=== PATIENT | male | born 1950 | race Caucasian/White ===

== ENCOUNTER 2018-08-14 16:26 | Inpatient (IN) | payer MEDICARE ==
[~2018-08-14] VITALS: Ht 167.6 cm; Wt 77.6 kg
[2018-08-14 17:20] LABS: *BILIRUBIN,URIN NEGATIVE (NEGATIVE); *BLOOD, URINE NEGATIVE (NEGATIVE); *COLOR,URINE YELLOW (YELLOW); *KETONES,URINE NEGATIVE (NEGATIVE); *PROTEIN,URINE 1+ (NEGATIVE); LEUKOCYTE ESTERASE ,URINE NEGATIVE (NEGATIVE); NITRITE, URINE NEGATIVE (NEGATIVE); PH,URINE 6.5 (5.0-8.0); UGLUCOSE NEGATIVE (NEGATIVE)
[2018-08-14 17:20] LABS: BASOPHILS # (AUTO) 0.1 K/uL (0.0-8.0); BASOPHILS % (AUTO) 1.4 % (0.0-2.0); EOSINOPHILS # (AUTO) 0.1 K/uL (0.0-0.7); EOSINOPHILS % (AUTO) 1.3 % (0.0-7.0); HEMATOCRIT 42.6 % (36.7-47.1); HEMOGLOBIN 14.9 g/dL (12.5-16.3); LYMPHOCYTES # (AUTO) 1.3 K/uL (20.0-40.0); LYMPHOCYTES % (AUTO) 23.3 % (20.5-51.5); MEAN CORPUSCULAR HEMOGLOBIN 30.4 uug (23.8-33.4); MEAN CORPUSCULAR HGB CONC 35 g/dL (32.5-36.3); MEAN CORPUSCULAR VOLUME 86.8 fL (73.0-96.2); MONOCYTES # (AUTO) 0.6 K/uL (2.0-10.0); MONOCYTES % (AUTO) 10.4 % (0.0-11.0); NEUTROPHILS # (AUTO) 3.6 K/uL (1.8-8.9); NEUTROPHILS % (AUTO) 63.6 % (38.5-71.5); PLATELET COUNT (AUTO) 208 K/uL (152-348); RED BLOOD CELL COUNT(AUTO) 4.91 MIL/uL (4.06-5.63); WHITE BLOOD COUNT (AUTO) 5.7 K/uL (3.6-10.2)
[2018-08-14 17:27] LABS: CARBON DIOXIDE 26 mmol/L (21-32); CHLORIDE 103 mmol/L (98-107); CREATININE 1.2 mg/dL (0.6-1.3); GLUCOSE 102 mg/dL (74-106); POTASSIUM 4.2 mmol/L (3.5-5.1); UREA NITROGEN, BLOOD 15 mg/dL (7-18)
[2018-08-14 17:33] LABS: ALANINE AMINOTRANSFERASE 30 U/L (16-63); ALKALINE PHOSPHATASE 73 U/L (50-136); ASPARTATE AMINOTRANSFERASE 20 U/L (15-37); BILIRUBIN,DIRECT 0.2 mg/dL (0.0-0.2); BILIRUBIN,TOTAL 0.4 mg/dL (0.2-1.0); TOTAL PROTEIN, SERUM 6.8 g/dL (6.4-8.2)
[2018-08-14 17:34] LABS: ACETAMINOPHEN < 2.0 ug/mL (10-30)
[2018-08-14 17:40] LABS: *AMPHETAMINE, URINE NEGATIVE (NEGATIVE); *BARBITURATE, URINE NEGATIVE (NEGATIVE); *CANNABINOID, URINE NEGATIVE (NEGATIVE); *COCCAINE, URINE NEGATIVE (NEGATIVE); *OPIATE, URINE NEGATIVE (NEGATIVE); *PHENCYCLIDINE SCREEN,URINE NEGATIVE (NEGATIVE)
[2018-08-14 17:43] LABS: ETHANOL < 3 MG/DL (0-0)
[2018-08-14 17:45] LABS: *CLARITY,URINE SLIGHTLY HAZY (CLEAR)
[2018-08-14 17:54] LABS: MUCUS,URINE MANY /LPF (0-FEW); RBC,URINE 0-3 /HPF (0-3); WBC,URINE 0-3 /HPF (0-3)
[2018-08-14 17:56] LABS: THYROID STIMULATING HORMONE 1.428 mIU/mL (0.358-3.740)
[2018-08-14] MEDS ORDERED: MAG HYDROX/AL HYDROX/SIMETH 30 ML LIQUID UDC PO PRN (18:15)
[2018-08-14] MEDS ORDERED: TEMAZEPAM 7.5 MG CAPSULE PO PRN (18:15)
[2018-08-14] MEDS ORDERED: LORAZEPAM 0.5 MG TABLET PO PRN (18:15)
[2018-08-14] MEDS ORDERED: MAGNESIUM HYDROXIDE 30 ML LIQUID UDC PO PRN (18:15)
[2018-08-14] MEDS ORDERED: ACETAMINOPHEN 325 MG TABLET PO PRN (18:15)
--- NOTE | 2018-08-14 18:17 | NUR ---
MSE COMPLETED, ADMIT ORDER WRITTEN, BELONGINGS LIST DONE, SBAR REPORT TO CLYDE RIOS [place] [facility]. [place] TRANSP[place]ED [place] [facility] [place] W/C. ORIGINAL 5150 HOLD WITH PT.
[2018-08-14 18:52] VITALS: BP 149/102
[2018-08-15 08:00] VITALS: BP 139/84
[2018-08-15 16:00] VITALS: BP 145/87
[2018-08-15] MEDS ORDERED: SERTRALINE HCL 50 MG TABLET PO SCH (17:00)
[2018-08-15 20:00] VITALS: BP 116/72
[2018-08-16 07:30] VITALS: BP 158/97
[2018-08-16] MEDS: SERTRALINE HCL 50 MG TABLET PO SCH (16:43)
[2018-08-16] MEDS: AMLODIPINE 5 MG TABLET PO SCH (16:44)
[2018-08-16 16:58] VITALS: BP 130/66
[2018-08-16 20:52] VITALS: BP 155/80
[2018-08-17 07:30] VITALS: BP 170/90
[2018-08-17] MEDS: AMLODIPINE 5 MG TABLET PO SCH (08:35)
--- NOTE | 2018-08-17 09:10 | NUR ---
Initial Discharge Note: Patient currently lives at home by himself in [address] [place] [address] [[phone]]. Per patient, he would like to return there upon discharge. He is open to receiving outpatient psychiatric services, and in-home supportive services. TIAN will contact daughter, Navya Walter to figure out transportation. TIAN spoke with his [facility] Manager Manufacturing, Ama [[phone]] to learn about the conditions of his apartment but she refused to disclose much information and stated that upon the last inspection his apt. was in good conditions. TIAN will call outpatient case manager, Jerry [[phone]] when hes next available on Thursday, in order to find out more information regarding his living conditions. TIAN will continue to collaborate with interdisciplinary team to ensure safe and adequate discharge planning.
--- NOTE | 2018-08-17 14:47 | NUR ---
Discharge Planning: Per attending psychiatrist, patient is scheduled to discharge on August 20. foster care worker called and spoke with patient daughter, Navya [[phone]], about discharge plan. Per Navya, she cannot provide transportation to patient on Thursday but suggested that adoption social worker call patient sister, Delisa [[phone]]. Per Delisa, she will be able to pick patient up on August 20 at 11:00am.
--- NOTE | 2018-08-17 15:06 | NUR ---
GPS: NURSING: PATIENT PLACE ON 14 DAY HOLD,COURT WAS NOTIFIED AND PATIENT WAS NOTIFIED AND PROVIDED WITH A COPY.
[2018-08-17] MEDS: SERTRALINE HCL 50 MG TABLET PO SCH (16:49)
[2018-08-17 17:11] VITALS: BP 128/72
[2018-08-17 20:07] VITALS: BP 137/77
[2018-08-18 08:25] VITALS: BP 166/91
[2018-08-18] MEDS: AMLODIPINE 10 MG TABLET PO SCH (08:28)
[2018-08-18] MEDS ORDERED: AMLODIPINE 5 MG TABLET PO SCH (09:00)
--- NOTE | 2018-08-18 11:48 | NUR ---
THURSDAY Discharge Note: Patient will be discharged back to his home on August 20 [[address] [place] [address]; ] and transportation will be provided by patients sister, Delisa [[phone]] at 11:00am. Patients daughter, Navya [[phone]], was contacted, informed, and agreeable with discharge plan. Patient is alert and oriented x3-4, is able to plan for self-care, and denies any SI/HI. Patient is aware and agreeable with discharge plans. Patient will continue to follow-up with his Primary Care Physician at [facility] [[id number], [place] [address]; ]. Patient also sees psychiatrist, Dr. Barbour, at [facility]. Patient does not have a scheduled follow-up appointment and he refused to have social science manager make appointment for him stating I can do it myself. Continuing care packet has been sent to MD office. Patient was provided additional mental health referrals in his area including Patient was given outpatient mental health resources including [facility] [ ], Kristyn Craig [ ], and the National Suicide Prevention Lifeline [ ].
--- NOTE | 2018-08-18 12:01 | NUR ---
Firearms Report: SW completed and submitted [employer] Firearms Report for 5150 DTS Certification.
--- NOTE | 2018-08-18 14:35 | NUR ---
GROUP ACTIVITY NOTE: GOAL Patient will actively participate in the group activity of the day or relax out in the patio room with fellow patients. INTERVENTION Tower Loader Operator invited patient to participate in a group activity consisting of crossword puzzles and coloring held from 10:30-11:15 am out in the patio. RESPONSE Patient expressed interest in participating in activities. The pt. watched some TV in the activities room and joined his peers in the outside patio for the remainder of time. The pt. is very alert and oriented, and was calm and cooperative throughout activity time. The patient expressed that he wished there was more of a group discussion of some sort as the group activity. PLAN Patient will be invited to attend the next group activity.
[2018-08-18 16:33] VITALS: BP 169/86
[2018-08-18] MEDS: SERTRALINE HCL 50 MG TABLET PO SCH (17:21)
[2018-08-18 20:13] VITALS: BP 128/67
[2018-08-19 07:30] VITALS: BP 156/94
[2018-08-19] MEDS: AMLODIPINE 10 MG TABLET PO SCH (08:20)
[2018-08-19 16:13] VITALS: BP 131/71
[2018-08-19] MEDS: SERTRALINE HCL 50 MG TABLET PO SCH (17:13)
[2018-08-19 21:51] VITALS: BP 146/81
[2018-08-20] MEDS: AMLODIPINE 10 MG TABLET PO SCH (08:17)
[2018-08-20 08:22] VITALS: BP 146/87
--- NOTE | 2018-08-20 11:00 | NUR ---
1050 Discharged instruction given to patient regarding medications to continue at home and als prescription given and instructed to filled it his pharmacy, patient verbalized understanding. All valuable and belongings returned and signed by patient, 1100 Patient discharged with sister via private car, patient stable, denies SI/HI. No delusion. No hallucination noted.
== END 2018-08-20 11:00 | disposition home or self-care (01) | DRG 885 ==
LOC: ER 16:28 → GPS 18:03
PROVIDERS: ADMIT Psychiatry & Neurology Psychosomatic Medicine; ATTEND Nurse Practitioner Acute Care
PROC: 0HBRXZZ Excision of Toe Nail, External Approach (ICD-10-PCS; 2018-08-15)
PROC: GZ56ZZZ Individual Psychotherapy, Supportive (ICD-10-PCS; principal; 2018-08-16)
DX: F33.2 Major depressive disorder, recurrent severe without psychotic features (principal); B35.1 Tinea unguium; R26.2 Difficulty in walking, not elsewhere classified; B35.3 Tinea pedis; Z91.5 Personal history of self-harm; E88.09 Other disorders of plasma-protein metabolism, not elsewhere classified; E78.5 Hyperlipidemia, unspecified; E66.9 Obesity, unspecified; Z68.27 Body mass index [BMI] 27.0-27.9, adult; I10 Essential (primary) hypertension
CPT/HCPCS: 36415; 70030-TC; 71045; 80307; 84443; 85025; 85730; 93005; A4663; G0480; G0480-TC